=== PATIENT | male | born 1945 | race Two or more races ===

== ENCOUNTER 2024-06-08 11:50 | Day surgery (SDC) | payer MEDICARE, MEDICAID, SELFPAY ==
[2024-06-08] VITALS (11 sets, daily range): BP systolic 108–162; BP diastolic 69–99; PULSE 72–87; RESP 13–18; TEMP 36.7–36.8; O2SAT 93–98; BMI 24.6
[2024-06-08] MEDS: RINGERS LACTATED 1000 ML 1,000 ML 100 ML IV (13:45)
[2024-06-08] MEDS: fentaNYL CIT INJ 50 mCg/ML AMP 2ML (ASD USE ONLY) IV (13:55)
[2024-06-08] MEDS: MIDAZOLAM INJ 1 MG/ML VIAL 2 ML (ASD USE ONLY) 2 MG IV (14:05)
== END 2024-06-08 15:20 | disposition home or self-care (01) ==
PROVIDERS: Referring Provider Surgery; Visit Provider Surgery
PROC: 0DBE8ZX Excision of Large Intestine, Via Natural or Artificial Opening Endoscopic, Diagnostic (ICD-10-PCS; CPT 45380; principal; 2024-06-08 13:00)
DX: Z12.11 Encounter for screening for malignant neoplasm of colon (principal); I10 Essential (primary) hypertension
CPT/HCPCS: G0121; A4217; J2250; J3010; J7120